=== PATIENT | female | born 1985 | race Caucasian/White ===

== ENCOUNTER → 2020-07-17 08:31 | Outpatient (CLI) | payer OTHER, SELFPAY ==
--- NOTE | ~2020-07-17 | CT_ITS ---
EXAMINATION: CT abdomen pelvis w con DATE: 07/17/2020 09:05 INDICATION: Crohn's disease. Nausea and vomiting. TECHNIQUE: Computed tomography (CT) of the abdomen and pelvis was performed with 100 mL Omnipaque 350 intravenous contrast. Automated exposure control and iterative reconstruction technique were employe d. The dose-length product was 696.37 mGy-cm. COMPARISON: None. FINDINGS: The visualized portions of the lung bases demonstrates minimal atelectasis in the right. Th ere is a 3 mm nodule in right lower lobe, likely benign. No pleural effusion. The heart size is rachel l. No pericardial effusion. The liver, gallbladder, spleen, pancreas, adrenal glands, and kidneys are normal. There is an ileocolic anastomosis. There is contiguous wall thickening of the ascending, tra nsverse, descending, and proximal sigmoid colon, consistent with colitis. There are no dilated loops of bowel. There are no pathologically enlarged lymph nodes. There is trace pelvic ascites. The bones are unremarkable. IMPRESSION: 1. Colitis from the ascending colon to the proximal sigmoid colon. Reviewed, dictated and finalized at location B.
== END ==
PROVIDERS: Visit Provider Internal Medicine Gastroenterology
DX: K50.90 Crohn's disease, unspecified, without complications (principal)
CPT/HCPCS: 74177; Q9967